=== PATIENT | female | born 1980 | race Caucasian/White ===

== ENCOUNTER 2023-12-21 15:02 | Emergency (ER) | payer OTHER ==
[~2023-12-21] VITALS: Ht 177.8 cm; Wt 65.0 kg
[2023-12-21 15:16] VITALS: BP 102/63; PULSE 80; RESP 20; TEMP 98.2; O2SAT 98
[2023-12-21 15:51] LABS: CLARITY URINE CLEAR (CLEAR); COLOR URINE YELLOW (YELLOW); GLUCOSE URINE NEGATIVE (NEGATIVE); KETONES URINE NEGATIVE (NEGATIVE); LEUKOCYTE ESTERASE URINE NEGATIVE (NEGATIVE); NITRITE URINE NEGATIVE (NEGATIVE); OCCULT BLOOD URINE NEGATIVE (NEGATIVE); PROTEIN URINE NEGATIVE (NEGATIVE); SPECIFIC GRAVITY URINE 1.025 (1.005-1.030)
[2023-12-21 16:38] LABS: BASOPHILS % 0.8 % (0.0-2.0); EOSINOPHILS % 1.1 % (0.0-5.0); HEMATOCRIT. 46.9 % (36.0-48.0); HEMOGLOBIN. 16.3 g/dL (12.0-16.0); LYMPHOCYTES % 34.2 % (20.0-50.0); MEAN CORPUSCULAR HEMOGLOBIN 32.4 pg (28.0-32.0); MEAN CORPUSCULAR HGB CONC 34.8 g/dL (31.0-37.0); MEAN CORPUSCULAR VOLUME 93.2 fL (81.0-99.0); MEAN PLATELET VOLUME 8.4 fl (7.4-10.4); NEUTROPHILS % 56.9 % (40.0-76.0); PLATELET 283 x1000/uL (130-400); RED BLOOD CELL COUNT 5.03 mill/uL (4.2-5.4)
[2023-12-21 16:42] LABS: CHLORIDE 108 mEq/L (98-107); SODIUM 139 mEq/L (136-145)
[2023-12-21 16:43] LABS: CALCIUM 9.3 mg/dL (8.7-10.4); CARBON DIOXIDE 30 mEq/L (21-32)
[2023-12-21 16:48] LABS: CREATININE 0.8 mg/dL (0.6-1.0); GLUCOSE 76 mg/dL (70-105); UREA NITROGEN BLOOD 12 mg/dL (9-23)
[2023-12-21 16:50] LABS: TROPONIN I HIGH SENSITIVITY < 4 ng/L (3.0-34)
== END 2023-12-21 18:35 | disposition home or self-care (01) ==
LOC: ER 15:02
DX: R07.89 Other chest pain (principal); E78.00 Pure hypercholesterolemia, unspecified; Z98.890 Other specified postprocedural states
CPT/HCPCS: 36415; 71045; 80048; 81003; 81025; 84484; 85025; 93005; 99285

== ENCOUNTER 2024-04-07 11:52 | Emergency (ER) | payer OTHER ==
[~2024-04-07] VITALS: Ht 172.7 cm; Wt 68.0 kg
[2024-04-07 11:55] VITALS: TEMP 98.3; O2SAT 97
[2024-04-07 12:17] LABS: CARBON DIOXIDE 32 mEq/L (21-32); CHLORIDE 108 mEq/L (98-107); POTASSIUM 4.4 mEq/L (3.5-5.1); SODIUM 143 mEq/L (136-145)
[2024-04-07 12:18] LABS: BASOPHILS % 0.8 % (0.0-2.0); CALCIUM 9.4 mg/dL (8.7-10.4); EOSINOPHILS % 3.6 % (0.0-5.0); HEMOGLOBIN. 17.5 g/dL (12.0-16.0); LYMPHOCYTES % 33.6 % (20.0-50.0); MEAN CORPUSCULAR HEMOGLOBIN 32.4 pg (28.0-32.0); MEAN CORPUSCULAR HGB CONC 33.7 g/dL (31.0-37.0); MEAN CORPUSCULAR VOLUME 96.1 fL (81.0-99.0); PLATELET 279 x1000/uL (130-400); RED BLOOD CELL COUNT 5.41 mill/uL (4.2-5.4); RED CELL DISTRIBUTION WIDTH 16.5 % (11.6-14.6); WHITE BLOOD COUNT 6.4 x1000/uL (4.5-11.0)
[2024-04-07 12:23] LABS: CREATININE 0.8 mg/dL (0.6-1.0); GLUCOSE 106 mg/dL (70-105); UREA NITROGEN BLOOD 7 mg/dL (9-23)
[2024-04-07 12:35] LABS: TROPONIN I HIGH SENSITIVITY < 4 ng/L (3.0-34)
[2024-04-07] MEDS: KETOROLAC 30MG/ML VIAL IM ONE (12:35)
[2024-04-07 13:04] VITALS: BP 146/78; PULSE 78; RESP 14; O2SAT 99
== END 2024-04-07 13:05 | disposition home or self-care (01) ==
LOC: ER 11:52
DX: R07.9 Chest pain, unspecified (principal)
CPT/HCPCS: 80048; 81025; 85025; 84484; 36415; 71045; 93005; 96372; 99285; J1885; Z7610

== ENCOUNTER 2024-09-03 16:21 | Emergency (ER) | payer OTHER ==
[~2024-09-03] VITALS: Ht 172.7 cm; Wt 72.6 kg
[2024-09-03 16:23] VITALS: O2SAT 100
[2024-09-03 16:29] VITALS: BP 137/78; PULSE 86; RESP 16; TEMP 36.7; O2SAT 98
[2024-09-03] MEDS ORDERED: ALBU4TAB6 MT (20:00)
[2024-09-03] MEDS ORDERED: FLUT1AER3 INH (20:00)
[2024-09-03] MEDS ORDERED: AMOX1TAB16 MT (20:00)
== END 2024-09-03 20:41 | disposition home or self-care (01) ==
LOC: ER 16:29
DX: J45.901 Unspecified asthma with (acute) exacerbation (principal); J20.9 Acute bronchitis, unspecified; E78.00 Pure hypercholesterolemia, unspecified; J03.90 Acute tonsillitis, unspecified; Z79.51 Long term (current) use of inhaled steroids; Z87.891 Personal history of nicotine dependence
CPT/HCPCS: 71045; 87070; 87430; 99284

== ENCOUNTER 2024-09-12 18:32 | Emergency (ER) | payer OTHER ==
[~2024-09-12] VITALS: Ht 177.8 cm; Wt 79.0 kg
[~2024-09-12 18:32] MED LIST: ALBU4TAB6 MT; AMOX1TAB16 MT; FLUT1AER3 INH
[2024-09-12 18:51] VITALS: O2SAT 100
[2024-09-12] MEDS: IBUPROFEN 600MG TABLET PO ONE (20:44)
[2024-09-12] MEDS ORDERED: IBUP-2029 MT (21:29)
[2024-09-12 22:16] VITALS: BP 159/95; PULSE 69; RESP 16; TEMP 37.2; O2SAT 100
== END 2024-09-12 22:22 | disposition home or self-care (01) ==
LOC: ER 18:32
DX: M25.562 Pain in left knee (principal); E78.00 Pure hypercholesterolemia, unspecified; Z79.51 Long term (current) use of inhaled steroids
CPT/HCPCS: 99283; 73560; L1830